=== PATIENT | male | born 1990 | race Caucasian/White ===

== ENCOUNTER 2024-07-22 16:02 | Emergency (ER) | payer OTHER ==
[2024-07-22 16:08] VITALS: TEMP 98
[2024-07-22 16:31] LABS: Basophils % (A) 0 %; Eosinophils # (A) 0.1 k/uL (0-0.7); Eosinophils % (A) 1 %; HCT 53.9 % (39.0-53.0); HGB 17.8 gm/dL (13.0-17.5); Lymphocytes % (A) 14 %; MCH 28.5 pg (25.0-35.0); MCV 86.3 fL (80.0-100.0); Mean Platelet Volume 8.5; Monocytes # (A) 0.7 k/uL (0-1.0); Monocytes % (A) 10 %; Neutrophils # (A) 4.9 k/uL (1.3-7.7); Neutrophils % (A) 73 %; Platelet Count 163 k/uL (150-450); RBC 6.24 m/uL (4.30-5.90); RDW 13.2 % (11.5-15.5); WBC 6.7 k/uL (3.8-10.6)
[2024-07-22 16:46] LABS: ALT 92 U/L (4-49); AST 52 U/L (17-59); African American GFR (CKD) >90 (>60 ml/min/1.73 sqM); Albumin 4.4 g/dL (3.5-5.0); Alkaline Phosphatase 65 U/L (38-126); Amylase 55 U/L (30-110); Anion Gap 10 mmol/L; Blood Urea Nitrogen 17 mg/dL (9-20); Calcium 8.8 mg/dL (8.4-10.2); Carbon Dioxide 28 mmol/L (22-30); Chloride 100 mmol/L (98-107); Glucose 99 mg/dL (74-99); Lipase 27 U/L (23-300); Non-African American GFR(CKD) >90 (>60 ml/min/1.73 sqM); Potassium 4.5 mmol/L (3.5-5.1); Sodium 138 mmol/L (137-145); Total Bilirubin 1.9 mg/dL (0.2-1.3); Total Protein 7.7 g/dL (6.3-8.2)
--- NOTE | 2024-07-22 17:10 | ED ---
Abdominal Pain HPI - General Chief Complaint: Abdominal Pain Stated Complaint: abd pain, Time Seen by Provider: 07/22/24 16:47 Source: patient, RN notes reviewed Mode of arrival: ambulatory Limitations: no limitations - History of Present Illness Initial Comments: This is a 34-year-old male who presents to the emergency department for abdominal pain. States that it started yesterday. Pain is in the epigastric region and states that it radiates to his lower abdomen and down to his penis. Denies any nausea, vomiting, or changes in bowel/bladder habits. Pain does not radiate to the back and is not worse on any particular side. States that the pain has essentially been constant. Denies any history of similar symptoms in the past. He is currently at [facility]. MD Complaint: abdominal pain - Related Data Allergies Allergy/AdvReac Type Severity Reaction Status Date / Time No Known Allergies Allergy Verified 07/22/24 16:08 Review of Systems ROS Statement: Those systems with pertinent positive or pertinent negative responses have been documented in the HPI. ROS Other: All systems not noted in ROS Statement are negative. Past Medical History Additional Past Medical History / Comment(s): hep c History of Any Multi-Drug Resistant Organisms: None Reported Past Surgical History: No Surgical Hx Reported Past Psychological History: No Psychological Hx Reported Smoking Status: Current every day smoker Past Drug Use History: Cocaine General Exam Limitations: no limitations General appearance: alert, in no apparent distress Head exam: Present: atraumatic, normocephalic, normal inspection Respiratory exam: Present: normal lung sounds bilaterally. Absent: respiratory distress, wheezes, rales, rhonchi, stridor Cardiovascular Exam: Present: regular rate, normal rhythm, normal heart sounds. Absent: systolic murmur, diastolic murmur, rubs, gallop, clicks GI/Abdominal exam: Present: soft, tenderness (diffuse), normal bowel sounds. Absent: distended Neurological exam: Present: alert, oriented X3, CN II-XII intact Psychiatric exam: Present: normal affect, normal mood Skin exam: Present: warm, dry, intact, normal color. Absent: rash Course Vital Signs 07/22/24 07/22/24 07/22/24 16:05 17:34 18:00 Temperature 98 F Pulse Rate 92 81 75 Respiratory 20 20 18 Rate Blood Pressure 133/83 130/79 115/76 O2 Sat by Pulse 99 99 97 Oximetry 07/22/24 19:16 Temperature Pulse Rate 77 Respiratory 18 Rate Blood Pressure 120/74 O2 Sat by Pulse 97 Oximetry Medical Decision Making - Medical Decision Making This is a 34-year-old male who presents to the emergency department for abdominal pain. Was pt. sent in by a medical professional or institution? @ -No Did you speak to anyone other than the patient for history? @ -No Did you review nursing and triage notes? @ -Yes, and I agree, it is accurate with regards to the patient's symptoms. Were old charts reviewed? @ -No Differential Diagnosis? @ -Differential Abdominal Pain Men: Appendicitis, cholecystitis, diverticulosis, ischemic bowel, pancreatitis, hepatitis, UTI, gastroenteritis, AAA, incarcerated hernia, bowel obstruction, constipation, inflammatory bowel, hepatitis, peptic ulcer disease, splenic infarction, perforated viscus, testicular torsion, this is not meant to be an all-inclusive list EKG interpreted by me (3pts min.)? @ -EKG interpreted by me demonstrating the following: Sinus rhythm. Ventricular rate 84 bpm, RI interval 134 ms, QRS duration 97 ms, QTc 379 ms. X-rays interpreted by me (1pt min.)? @ -Not obtained CT interpreted by me (1pt min.)? @ -CT scan of the abdomen and pelvis obtained. My interpretation identifies no bowel wall thickening or free air. U/S interpreted by me (1pt. min.)? @ -Not obtained What testing was considered but not performed? (CT, X-rays, U/S, labs)? Why? @ -None What meds were considered but not given? Why? @ -None Did you discuss the management of the patient with other professionals? @ -No Did you reconcile home meds? @ -No Was smoking cessation discussed for >3mins.? @ -No Was critical care preformed (if so, how long)? @ -No Were there social determinants of health that impacted care today? How? (Homelessness, low income, unemployed, alcoholism, drug addiction, transportation, low edu. Level, literacy, decrease access to med. care, detention, rehab)? @ -Rehab, who sent the patient in for evaluation Was there de-escalation of care discussed even if they declined? (Discuss DNR or withdrawal of care, Hospice)? @ -No What co-morbidities impacted this encounter? (DM, HTN, Smoking, COPD, CAD, Cancer, CVA, Hep., AIDS, mental health diagnosis, sleep apnea, morbid obesity)? @ -Drug addiction Was patient admitted / discharged? @ -Discharged. Lab work demonstrates a mild elevation in LFTs and is otherwise unremarkable. Urinalysis negative for signs of infection. UDS positive for amphetamines, methamphetamines, and benzodiazepines. He is currently at [facility] for treatment of drug addiction. CT scan of the abdomen and pelvis demonstrates nonspecific splenomegaly with mid abdominal lymphadenopathy that could relate to a viral etiology or other infectious/inflammatory process. However, lymphoproliferative diseases such as lymphoma are not excluded and he will need follow-up in 1 month for reevaluation. Findings reviewed with the patient. He advised that he is at [facility] for another 3 weeks and will then return home where he does have a primary care provider. Advised that he will need to follow-up within that timeframe for reevaluation of symptoms and repeat imaging to reevaluate these changes in the abdomen and discuss if any additional testing is indicated. Otherwise advised ibuprofen and Tylenol as needed for pain relief. Patient discharged back to [facility] in stable condition. Case discussed with ED attending Dr. Farias. Return precautions reviewed in depth, the patient is instructed to return to the emergency department with any new, worsening, or concerning symptoms. Patient verbalized understanding. Undiagnosed new problem with uncertain prognosis? @ -None Drug Therapy requiring intensive monitoring for toxicity (Heparin, Nitro, Insulin, Cardizem)? @ -None Were any procedures done? @ -None Diagnosis/symptom? @ -Abdominal pain, lymphadenopathy Acute, or Chronic, or Acute on Chronic? @ -Acute Uncomplicated (without systemic symptoms) or Complicated (systemic symptoms)? @ -Uncomplicated Side effects of treatment? @ -None Exacerbation, Progression, or Severe Exacerbation] @ -Not applicable Poses a threat to life or bodily function? @ -Unlikely - Lab Data Result diagrams: 07/22/24 16:22 07/22/24 16:22 Lab Results 07/22/24 07/22/24 07/22/24 Range/Units 16:22 16:22 16:29 WBC 6.7 (3.8-10.6) k/uL RBC 6.24 H (4.30-5.90) m/uL Hgb 17.8 H (13.0-17.5) gm/dL Hct 53.9 H (39.0-53.0) % MCV 86.3 (80.0-100.0) fL MCH 28.5 (25.0-35.0) pg MCHC 33.0 (31.0-37.0) g/dL RDW 13.2 (11.5-15.5) % Plt Count 163 (150-450) k/uL MPV 8.5 Neutrophils % 73 % Lymphocytes % 14 % Monocytes % 10 % Eosinophils % 1 % Basophils % 0 % Neutrophils # 4.9 (1.3-7.7) k/uL Lymphocytes # 1.0 (1.0-4.8) k/uL Monocytes # 0.7 (0-1.0) k/uL Eosinophils # 0.1 (0-0.7) k/uL Basophils # 0.0 (0-0.2) k/uL Sodium 138 (137-145) mmol/L Potassium 4.5 (3.5-5.1) mmol/L Chloride 100 (98-107) mmol/L Carbon Dioxide 28 (22-30) mmol/L Anion Gap 10 mmol/L BUN 17 (9-20) mg/dL Creatinine 0.95 (0.66-1.25) mg/dL Est GFR (CKD-EPI)AfAm >90 (>60 ml/min/1.73 sqM) Est GFR (CKD-EPI)NonAf >90 (>60 ml/min/1.73 sqM) Glucose 99 (74-99) mg/dL Calcium 8.8 (8.4-10.2) mg/dL Total Bilirubin 1.9 H (0.2-1.3) mg/dL AST 52 (17-59) U/L ALT 92 H (4-49) U/L Alkaline Phosphatase 65 (38-126) U/L Total Protein 7.7 (6.3-8.2) g/dL Albumin 4.4 (3.5-5.0) g/dL Amylase 55 (30-110) U/L Lipase 27 (23-300) U/L Urine Color Light [place] Urine Appearance Clear (Clear) Urine pH 5.0 (5.0-8.0) Ur Specific [place] 1.036 H (1.001-1.035) Urine Protein Trace H (Negative) Urine Glucose (UA) Negative (Negative) Urine Ketones Negative (Negative) Urine Blood Trace H (Negative) Urine Nitrite Negative (Negative) Urine Bilirubin Negative (Negative) Urine Urobilinogen 2.0 (<2.0) mg/dL Ur Leukocyte Esterase Negative (Negative) Urine RBC 8 H (0-5) /hpf Urine WBC 2 (0-5) /hpf Ur Squamous Epith Cells <1 (0-4) /hpf Urine Mucus Few H (None) /hpf Urine Opiates Screen Not Detected (NotDetected) Ur Oxycodone Screen Not Detected (NotDetected) Urine Methadone Screen Not Detected (NotDetected) Ur Barbiturates Screen Not Detected (NotDetected) U Tricyclic Antidepress Not Detected (NotDetected) Ur Phencyclidine Scrn Not Detected (NotDetected) Ur Amphetamines Screen Detected H (NotDetected) U Methamphetamines Scrn Detected H (NotDetected) U Benzodiazepines Scrn Detected H (NotDetected) Urine Cocaine Screen Not Detected (NotDetected) U Marijuana (THC) Screen Not Detected (NotDetected) - Radiology Data Radiology results: report reviewed, image reviewed Disposition Clinical Impression: Abdominal pain, Lymph node enlargement Disposition: HOME SELF-CARE Instructions (If sedation given, give patient instructions): Lymphadenopathy (ED), Abdominal Pain (ED) Additional Instructions: Return to the emergency department with any new, worsening, or concerning symptoms. Your CT scan showed lymph node enlargement in your abdomen and enlargement of your spleen. This could just be related to inflammation or a viral infection. However, you need to follow-up with your regular doctor when you return home from [facility] to have repeat testing to make sure other more serious causes like lymphoma are not the reason for your symptoms. Continue to alternate with ibuprofen and Tylenol as needed for pain relief in the meantime. Is patient prescribed a controlled substance at d/c from ED?: No Referrals: Angel Morales DO [Primary Care Provider] - 1-2 days Time of Disposition: 18:58
[2024-07-22 17:13] LABS: Amphetamine Screen,Urine Detected (NotDetected); Barbiturate Screen,Urine Not Detected (NotDetected); Benzodiazepines Screen,Urine Detected (NotDetected); Cocaine Screen,Urine Not Detected (NotDetected); Methadone Screen, Urine Not Detected (NotDetected); Opiate Screen,Urine Not Detected (NotDetected); Oxycodone Screen, Urine Not Detected (NotDetected); Phencyclidine Screen,Urine Not Detected (NotDetected); Tricyclic Antidepressant,Urine Not Detected (NotDetected); Urn Cannabinoid Scrn Not Detected (NotDetected)
[2024-07-22 17:23] LABS: Appearance,Urine Clear (Clear); Bilirubin,Urine Negative (Negative); Blood,Urine Trace (Negative); Color,Urine Light Orange; Glucose,Urine (UA) Negative (Negative); Ketones,Urine Negative (Negative); Leukocyte Esterase,Urine Negative (Negative); Mucus,Urine Few /hpf; Nitrite,Urine Negative (Negative); Protein,Urine Trace (Negative); RBC,Urine 8 /hpf (0-5); Specific Gravity,Urine 1.036 (1.001-1.035); Squamous Epithelial Cell,Urine <1 /hpf (0-4); WBC,Urine 2 /hpf (0-5)
[2024-07-22] MEDS: DICYCLOMINE 10 MG/ML 2 ML AMP IM STA (17:23)
[2024-07-22] MEDS: KETOROLAC 15 MG/ML 1 ML VIAL IVP STA ×2 (17:23→19:24)
[2024-07-22] MEDS: SODIUM CHLORIDE 0.9% 1,000 ML IV STA (17:27)
--- NOTE | 2024-07-22 18:45 | CT ---
INDICATION: Patient age:Male; 34 years old; Reason for study: Centralized abdominal pain; PHH. COMPARISON: None. TECHNIQUE: Standard CT of the abdomen and pelvis following the administration of 100 cc of Isovue 3 00 IV contrast material. Coronal and sagittal reformats were performed. One or more CT dose reduction strategies were utilized during this examination. Total DLP administered was 1132 mGycm. FINDINGS: LOWER CHEST: Unremarkable ABDOMEN LIVER: Unremarkable. GALLBLADDER AND BILE DUCTS: Unremarkable. PANCREAS: Unremarkable. SPLEEN: Spleen is enlarged measuring up to 14.4 cm in craniocaudal dimension. ADRENAL GLANDS: Unremarkable. KIDNEYS AND URETERS: No evidence of hydronephrosis or renal calculus. The ureters are unremarkable. PELVIS URINARY BLADDER: Incompletely distended but grossly unremarkable. REPRODUCTIVE: Unremarkable. ABDOMEN & PELVIS STOMACH AND BOWEL: Stomach is grossly unremarkable. Small bowel is of normal caliber. Rectal stool ba ll is seen. No evidence of bowel obstruction. PERITONEUM: No evidence of pneumoperitoneum or free fluid. VASCULATURE: No aortic aneurysmal changes. MUSCULOSKELETAL: Degenerative changes of the visualized spine. No acute fractures. LYMPH NODES: Multiple enlarged and nonenlarged lymph nodes are seen throughout the abdomen with some of the more conspicuous noted to measure up to 9 mm in short access. SOFT TISSUE/ABDOMINAL WALL: Unremarkable IMPRESSION: Nonspecific splenomegaly with mid abdominal lymphadenopathy could relate to a viral etiology versus o ther infectious/inflammatory process. However other lymphoproliferative diseases such as lymphoma are not entirely excluded. Correlate with clinical evaluation. Otherwise recommend short 1 month follow- up after clinical course is complete to assess for any interval changes. [facility], , 07/22/2024 6:43 PM
[2024-07-22 19:14] VITALS: RESP 18
[2024-07-22 19:17] VITALS: BP 120/74; PULSE 77
[2024-07-22] MEDS: ACETAMINOPHEN TAB 500 MG TAB PO STA (19:23)
== END 2024-07-22 19:30 | disposition home or self-care (01) ==
LOC: EC 16:02
DX: R10.13 Epigastric pain (principal); R59.9 Enlarged lymph nodes, unspecified; F17.200 Nicotine dependence, unspecified, uncomplicated
CPT/HCPCS: 36415; 93005; 80053; 82150; 83690; 85025; 81001; 80306; 74177; 99285; 96374; 96376; 96372; 96361; J0500; J1885; Q9967; 36430